=== PATIENT | female | born 1985 | race Asian ===

== ENCOUNTER 2018-05-03 09:46 | Emergency (ER) | payer OTHER ==
[~2018-05-03] VITALS: Ht 160 cm; Wt 55.3 kg
[2018-05-03 09:54] VITALS: BP 110/77; Ht 160 cm; Wt 55.3 kg
== END 2018-05-03 10:33 | disposition home or self-care (01) ==
LOC: ED 09:46
DX: H10.9 Unspecified conjunctivitis (principal)